=== PATIENT | female | born 1990 | race Caucasian/White ===

== ENCOUNTER 2019-02-01 03:09 | Emergency (ER) | payer SELFPAY ==
[~2019-02-01] VITALS: Ht 170.2 cm; Wt 57.6 kg
[2019-02-01] MEDS ORDERED: NKM (03:18)
[2019-02-01 03:24] VITALS: BP 126/75
--- NOTE | 2019-02-01 03:29 | Emergency Room Report ---
History of Present Illness General Chief Complaint: Upper Extremity Injury Source: Patient Present Illness HPI Is a 28-year-old female who is right-hand dominant. She presents with chief complaint of "the urology nurse broke my thumb." She was under arrest and said that the secretary of police manhandle her. She plane a right thumb pain. Onset was just prior to arrival. Pain is 8 out of 10. Worse with movement. No other injury. Did not pass out. Allergies: Coded Allergies: No Known Allergies (Unverified , 02/01/19) Patient History Past Medical History: see triage record, old chart reviewed Past Surgical History: none Pertinent Family History: none Social History: Denies: smoking Last Menstrual Period: 01/21/19 Now: No Immunizations: other Reviewed Nursing Documentation: PMH: Agreed; PSxH: Agreed Nursing Documentation-PMH Past Medical History: No Stated History Review of Systems Eye: Denies: eye pain, blurred vision ENT: Denies: ear pain, nose congestion, throat swelling Respiratory: Denies: cough, shortness of breath Cardiovascular: Denies: chest pain, palpitations Gastrointestinal: Denies: abdominal pain, diarrhea, nausea, vomiting Musculoskeletal: Reports: joint pain; Denies: back pain Skin: Denies: rash Neurological: Denies: headache, numbness Endocrine: Denies: increased thirst, increased urine Hematologic/Lymphatic: Denies: easy bruising All Other Systems: negative except mentioned in HPI Physical Exam Vital Signs Date Time Temp Pulse Resp B/P (MAP) Pulse Ox O2 Delivery O2 Flow Rate FiO2 02/01/19 03:12 97.7 100 18 126/75 (92) 94 Room Air vitals normal Sp02 EP Interpretation: reviewed, normal General Appearance: well appearing, no apparent distress, alert Head: normocephalic, atraumatic Eyes: bilateral eye PERRL, bilateral eye EOMI ENT: hearing grossly normal, normal pharynx Neck: full range of motion, supple, no meningismus Respiratory: chest non-tender, lungs clear, normal breath sounds Cardiovascular #1: regular rate, rhythm, no murmur Gastrointestinal: normal bowel sounds, non tender, no mass, no organomegaly, no bruit, non-distended Musculoskeletal: back normal, gait/station normal, normal range of motion, other - Tender to palpation over Base of right thumb. Psychiatric: mood/affect normal Skin: warm/dry Medical Decision Making Diagnostic Impression: Primary Impression: Sprain of hand, thumb, right Qualified Codes: S63.641A - Sprain of metacarpophalangeal joint of right thumb , initial encounter Additional Impression: Examination, medicolegal reason ER Course Patient with a right thumb sprain. No fracture dislocation. We'll discharge home. Other X-Ray Diagnostic Results Other X-Ray Diagnostic Results : X-Ray ordered: X-rays right finger # of Views/Limited Vs Complete: 3 View Indication: Pain EP Interpretation: Yes Interpretation: no dislocation, no soft tissue swelling, no fractures Impression: No acute disease Electronically Signed by: Dorian Sosa MD Last Vital Signs Date Time Temp Pulse Resp B/P (MAP) Pulse Ox O2 Delivery O2 Flow Rate FiO2 02/01/19 03:24 97.7 82 18 126/75 94 Room Air Status: improved Disposition: HOME, SELF-CARE Condition: Stable Scripts Ibuprofen* (MOTRIN*) 600 Mg Tablet 600 MG ORAL THREE TIMES A DAY, #30 TAB 0 Refills Prov: Dorian Sosa MD 02/01/19 Referrals: NOT CHOSEN [facility]/,REFERRING (PCP) Additional Instructions: Follow up with your DrMani in 7 days. Return if worse. Dorian Sosa MD Feb 01, 2019 03:29
[2019-02-01] MEDS ORDERED: IBUPROFEN600 MG ORAL (03:46)
[2019-02-01 03:56] VITALS: BP 126/75
--- NOTE | 2019-02-02 17:45 | Diagnostic Imaging Report ---
Indication: Right thumb pain Comparison: None Findings: 3 view right thumb performed No acute fracture or malalignment or periostitis, radiopaque foreign body identified. Soft tissues unremarkable. IMPRESSION: Negative exam
== END 2019-02-01 03:57 | disposition home or self-care (01) ==
LOC: EMR 03:25
DX: S63.641A Sprain of metacarpophalangeal joint of right thumb, initial encounter (principal); X58.XXXA Exposure to other specified factors, initial encounter; Y92.89 Other specified places as the place of occurrence of the external cause; Z04.89 Encounter for examination and observation for other specified reasons
CPT/HCPCS: 99283